=== PATIENT | male | born 1985 | race Caucasian/White ===

== ENCOUNTER 2020-04-15 18:23 | Emergency (ER) | payer OTHER ==
[2020-04-15] MEDS ORDERED: LORAZEPAM INJ 2 MG/1 ML VIAL IV ONE (19:53)
[2020-04-15] MEDS ORDERED: NORMAL SALINE 1000 ML 1,000 ML IV ONE (19:53)
--- NOTE | 2020-04-15 19:55 | ER Document Report ---
ED Medical Screen (RME) - General Chief Complaint: ETOH Abuse Stated Complaint: ETOH Time Seen by Provider: 04/15/20 19:51 Mode of Arrival: Ambulatory Information source: Patient Notes: 34-year-old male presented to ED for detox. He states that he tried to go cold turkey yesterday and ended up having seizures and tremors and his buddies gave him more alcohol. He states he has been drinking alcohol the whole time is 100 2 bottles of vodka a day and he wanted to come off of the alcohol. He states his significant other told him that he had to come to the emergency room and get help. He does not want the to know that he is in here. He is active duty . I have greeted and performed a rapid initial assessment of this patient. A comprehensive ED assessment and evaluation of the patient, analysis of test results and completion of medical decision making process will be conducted by an additional ED providers. - Related Data Home Medications: mens vitamins Past Medical History - Social History Chew tobacco use (# tins/day): Yes - 1 Frequency of alcohol use: Heavy Drug Abuse: None Physical Exam - Vital signs Vitals: Temp Pulse Resp BP 98.5 F 104 H 18 152/96 H 04/15/20 18:31 04/15/20 18:31 04/15/20 18:31 04/15/20 18:31 Course - Vital Signs Vital signs: Temp Pulse Resp BP Pulse Ox 98.5 F 104 H 18 152/96 H 04/15/20 19:47 04/15/20 18:31 04/15/20 18:31 04/15/20 18:31
[2020-04-15 20:20] LABS: ABSOLUTE EOSINOPHILS # (AUTO) 0.1 10^3/uL (0.0-0.6); ABSOLUTE LYMPHOCYTES (AUTO) 1.5 10^3/uL (0.5-4.7); ABSOLUTE MONOCYTES (AUTO) 0.6 10^3/uL (0.1-1.4); ABSOLUTE NEUT (AUTO) 2.8 10^3/uL (1.7-8.2); BASOPHILS % (AUTO) 0.9 % (0-2); EOSINOPHILS % (AUTO) 1.2 % (0-6); HEMATOCRIT 46.9 % (37.9-51.0); HEMOGLOBIN 16.7 g/dL (13.5-17.0); LYMPHOCYTES % (AUTO) 29.4 % (13-45); MEAN CORPUSCULAR HEMOGLOBIN 34.4 pg (27.0-33.4); MEAN CORPUSCULAR HGB CONC 35.6 g/dL (32.0-36.0); MEAN CORPUSCULAR VOLUME 97 fl (80-97); MONOCYTES % (AUTO) 12.7 % (3-13); PLATELET COUNT 254 10^3/uL (150-450); RED BLOOD COUNT 4.84 10^6/uL (4.35-5.55); RED CELL DISTRIBUTION WIDTH 12.5 % (11.5-14.0); SEGMENTED NEUTROPHILS % (AUTO) 55.8 % (42-78); TOTAL CELLS COUNTED % (AUTO) 100 %; WHITE BLOOD COUNT 5.1 10^3/uL (4.0-10.5)
--- NOTE | 2020-04-15 20:23 | ER Document Report ---
ED General <CHAR MAURER - Last Filed: 04/15/20 21:32> - General Mode of Arrival: Ambulatory - Related Data Home Medications: mens vitamins <ANA LAURA VANG - Last Filed: 04/16/20 04:52> - General Chief Complaint: ETOH Abuse Stated Complaint: ETOH Time Seen by Provider: 04/15/20 19:51 Primary Care Provider: [facility] [Outside] - 04/15/20 [facility] [Outside] - Follow up as needed [facility] [Outside] - Follow up as needed Notes: Patient is a 34-year-old male that comes to the emergency department for chief complaint of alcohol withdrawals and alcohol dependence. Patient states that he tried to go "cold turkey", he states he lasted for almost [address] to have repeated vomiting and became extremely shaky and tremulous. He stated his friends told him he looked like he was having a seizure but patient remembers all of the events. Patient states he typically drinks 1.5-2 bottles of vodka daily, he states that he has not tried to stop since he has reached this level of drinking, he has never gone through formal detox in the past. He denies depression or suicidal ideations, denies HI, he states he simply performed a drinking habit and it escalated. He denies any daily medications, diagnosed medical history, or past medical history. 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 He denies smoking or recreational drugs. (ANA LAURA VANG) - Related Data Allergies/Adverse Reactions: No Known Allergies Allergy (Unverified 04/15/20 19:55) Past Medical History - General Information source: Patient - Social History Smoking Status: Never Smoker Chew tobacco use (# tins/day): Yes - 1 Frequency of alcohol use: Heavy Drug Abuse: None Lives with: Alone Family History: Reviewed & Not Pertinent Patient has homicidal ideation: No <ANA LAURA VANG - Last Filed: 04/16/20 04:52> Review of Systems - Review of Systems Constitutional: See HPI EENT: No symptoms reported Cardiovascular: No symptoms reported Respiratory: No symptoms reported Gastrointestinal: See HPI Genitourinary: No symptoms reported Male Genitourinary: No symptoms reported Musculoskeletal: No symptoms reported Skin: No symptoms reported Hematologic/Lymphatic: No symptoms reported Neurological/Psychological: See HPI <ANA LAURA VANG - Last Filed: 04/16/20 04:52> Physical Exam <ANA LAURA VANG - Last Filed: 04/16/20 04:52> - Vital signs Vitals: Temp Pulse Resp BP 98.5 F 104 H 18 152/96 H 04/15/20 18:31 04/15/20 18:31 04/15/20 18:31 04/15/20 18:31 - Notes Notes: GENERAL: Patient is slightly anxious and slightly restless in appearance. Patient does smell of alcohol. HEAD: Normocephalic, atraumatic. EYES: Pupils equal, round, and reactive to light. Extraocular movements intact. ENT: Oral mucosa moist, tongue midline. Oropharynx unremarkable. Airway patent. NECK: Full range of motion. Supple. Trachea midline. No lymphadenopathy. LUNGS: Clear to auscultation bilaterally, no wheezes, rales, or rhonchi. No respiratory distress. Non-tender chest wall. HEART: Borderline tachycardia, normal rhythm, no murmur ABDOMEN: Soft, non-tender. Non-distended. EXTREMITIES: Moves all 4 extremities spontaneously. No edema, normal radial and dorsalis pedis pulses bilaterally. No cyanosis. BACK: no cervical, thoracic, lumbar midline tenderness. No saddle anesthesia, normal distal neurovascular exam. Moves all extremities in full range of motion. NEUROLOGICAL: Alert and oriented x3. Normal speech. Cranial nerves II through XII grossly intact. Strength 5/5 in all extremities. PSYCH: Slightly anxious and restless SKIN: Michael skin (TAJANA LAURA) Course - Laboratory Result Diagrams: 04/15/20 20:10 04/15/20 20:10 <CHAR MAURER - Last Filed: 04/15/20 21:32> - Laboratory Result Diagrams: 04/15/20 20:10 04/15/20 20:10 <ANA LAURA VANG - Last Filed: 04/16/20 04:52> - Re-evaluation Re-evalutation: Patient specifically asked not to have the involved. Spoke with mental health team, she states she spoke with Dr. Enriquez, this is reported to be within patient's rights. Patient is requesting detox. They will not accept him until his alcohol level is below 200. Patient was given an initial dose of benzodiazepines, later he became nauseated and was given Phenergan. After this patient's symptoms essentially resolved and patient slept but remained easily aroused. CBC unremarkable, chemistry shows elevated LFTs but patient has no abdominal pain specifically in the right upper quadrant, I suspect this is secondary to alcohol abuse. Bilirubin is borderline as well. Alk phos is unremarkable, lipase unremarkable, sodium and magnesium are unremarkable. Remaining work-up unremarkable except for alcohol level of 335. Patient will be cleared for detox when his alcohol level is below 200. He was given IV fluids. Alcohol level rechecked, level is 150s, patient with no significant change from prior, patient will be referred directly to [facility] for alcohol rehab. Patient does state understanding and agreement. (ANA LAURA VANG) - Vital Signs Vital signs: Temp Pulse Resp BP Pulse Ox 97.7 F 89 14 142/75 H 98 04/16/20 04:21 04/16/20 04:21 04/16/20 04:21 04/16/20 04:21 04/16/20 04:21 - Laboratory Laboratory results interpreted by me: 04/15/20 04/15/20 04/15/20 20:10 20:10 20:20 MCH 34.4 H Total Bilirubin 3.9 H Direct Bilirubin 0.6 H AST 153 H ALT 214 H Creatine Kinase Total Protein 8.6 H Albumin 5.4 H Urine Protein 30 H Urine Blood SMALL H Urine Urobilinogen 4.0 H Salicylates < 1.0 L Acetaminophen < 10 L Serum Alcohol 335 H* 04/15/20 20:20 MCH Total Bilirubin Direct Bilirubin AST ALT Creatine Kinase 233 H Total Protein Albumin Urine Protein Urine Blood Urine Urobilinogen Salicylates Acetaminophen Serum Alcohol Discharge <CHAR MAURER - Last Filed: 04/15/20 21:32> <ANA LAURA VANG - Last Filed: 04/16/20 04:52> - Discharge Clinical Impression: Alcohol use Alcohol withdrawal Qualifiers: Complication of substance-induced condition: with unspecified complication Qualified Code(s): F10.239 - Alcohol dependence with withdrawal, unspecified Condition: Stable Disposition: HOME, SELF-CARE Additional Instructions: You have been evaluated by both medical and behavioral health teams for alcohol use, withdrawal and desire for detoxification. You have been deemed appropriate for discharge. While in the emergency department you received the following services: Medical screening and assessment, nursing services, dietary services, pharmacological services, one-on-one counseling and/or psychotherapy, environmental services, and continuous observation by a patient patient safety tech. Medications can help with sleep, mood disturbance, depression and anxiety which are typical symptoms when withdrawing and then maintaining abstinence. You are being linked to [facility] for voluntary alcohol detoxification, they already have a bed for you since you were supposed to be at their facility at 2030 this evening. They can assist with managing alcohol withdrawal. Alcohol is one of the only substances you can from and medical monitoring is highly recommended. CHRONIC ALCOHOLISM and ALCOHOL ABUSE: Your evaluation reveals evidence of chronic alcoholism, an addiction to alcohol. The tendency to alcoholism may be inherited. Chronic use of alcohol weakens muscles, causes fatty deposits in the liver, damages the stomach, makes you more prone to infections, and can cause defects in unborn children. In the long run, brain atrophy and cirrhosis of the liver result. You are also at greater risk for certain types of cancer, such as cancer of the mouth, throat, stomach, and liver. Counselling services are available to help you. In-hospital treatment programs often help. Support groups such as Alcoholics Anonymous can be very useful in beating this addiction. Your physician can make a referral for you. As alcoholics often are prone to other addictions, you should discuss your use of any other medications with the doctor. ALCOHOL WITHDRAWAL: Your symptoms are caused by alcohol withdrawal. After a period of frequent drinking, the brain and body are changed by the alcohol. When you quit or reduce your drinking, the nervous system becomes unstable. Withdrawal symptoms can start a few hours after your last drink, but sometimes don't begin until a couple of days later. Symptoms can include shakiness, sweating, insomnia, nausea, vomiting, fearfulness, hallucinations, and seizures. In addition to the acute effects of alcohol withdrawal, we often have to deal with the medical effects of alcoholism. These problems often include dehydration, stomach irritation, intestinal bleeding, low blood sugar, liver disease, and pancreas inflammation. Treatment for alcohol withdrawal includes mild sedatives, vitamins, and fluids. You need to be with someone who can help if symptoms become severe. Many patients can withdraw at home. Admission to the hospital or a detox facility may be necessary if withdrawal symptoms are severe and uncontrollable. Abstaining from alcohol is the only effective long-term treatment. If you start drinking again, you will not be able to control yourself after the first drink. Treatment programs are available. In addition, many alcoholics benefit from Alcoholics Anonymous or other support groups available through your counselor or scientology director business travel. [facility] and [facility] are support groups for friends and family members of an alcoholic. Go to the emergency room if you develop persistent vomiting, severe abdominal pain, fever, shortness of breath, hallucinations, uncontrollable tremors, or seizures. FOLLOW-UP CARE: You are to go directly to [facility] for Voluntary Alcohol Detoxification. If you experience worsening or a significant change in your symptoms, notify your physician immediately, return to the Emergency Department at any time for re-evaluation or utilize mobile crisis. Referrals: [facility] [Outside] - Follow up as needed [facility] [Outside] - Follow up as needed [facility] [Outside] - 04/15/20
[2020-04-15 20:35] LABS: APPEARANCE,URINE CLEAR; BILIRUBIN,URINE NEGATIVE (NEGATIVE); COLOR,URINE YELLOW; GLUCOSE, URINE NEGATIVE (NEGATIVE); KETONES,URINE NEGATIVE (NEGATIVE); LEUKOCYTE ESTERASE,URINE NEGATIVE (NEGATIVE); NITRITE,URINE NEGATIVE (NEGATIVE); PROTEIN,URINE 30 mg/dL (NEGATIVE); URINE SPECIFIC GRAVITY 1.005
[2020-04-15] MEDS ORDERED: NICOTINE 14 MG/24 HR PATCH.TD24 TD ONE (20:48)
[2020-04-15 20:57] LABS: URINE AMPHETAMINES SCREEN NEGATIVE; URINE BARBITURATES SCREEN NEGATIVE; URINE BENZODIAZEPINES SCREEN NEGATIVE; URINE COCAINE SCREEN NEGATIVE; URINE MARIJUANA (THC) SCREEN NEGATIVE; URINE METHADONE SCREEN NEGATIVE; URINE PHENCYCLIDINE SCREEN NEGATIVE
[2020-04-15] MEDS ORDERED: DIAZEPAM 5 MG TABLET PO ONE (21:10)
[2020-04-15 21:18] LABS: ALBUMIN 5.4 g/dL (3.5-5.0); ALKALINE PHOSPHATASE 81 U/L (38-126); ANION GAP 15 (5-19); ASPARTATE AMINO TRANSFERASE 153 U/L (17-59); BILIRUBIN,DIRECT 0.6 mg/dL (0.0-0.4); BILIRUBIN,TOTAL 3.9 mg/dL (0.2-1.3); BLOOD UREA NITROGEN 10 mg/dL (7-20); CALCIUM 9.8 mg/dL (8.4-10.2); CARBON DIOXIDE 28 mmol/L (22-30); CHLORIDE 98 mmol/L (98-107); GLUCOSE 106 mg/dL (75-110); TOTAL PROTEIN 8.6 g/dL (6.3-8.2)
[2020-04-15 21:29] LABS: ACETAMINOPHEN < 10 ug/mL (10-30); SALICYLATE < 1.0 mg/dL (2.0-20.0)
[2020-04-15 21:32] LABS: ALCOHOL 335 mg/dL (NONE DETECTED)
--- NOTE | 2020-04-15 22:02 | PSYCHOLOGICAL NOTE ---
Psych Note - Psych Note Date seen by psych provider: 04/15/20 Time seen by psych provider: 21:00 - [id number]. Psych Note: Presenting Problem: Patient is a 34 year old male who presented to the [facility] ED this evening via POV/best friend for alcohol withdrawal and desire for detox. He told medical staff he has been drinking 1.5-2 bottles of Vodka daily for the past 10 years. He tried to detox on his own last night and said he "felt like he was dying" and his friends told him to come to the hospital for help. Patient identified he came to get help for alcohol withdrawal. He stated "I thought that's where I was" when this clinician mentioned [facility] next door for voluntary detox. Patient admitted to drinking 2 bottles of Vodka a day for the last 10 years. He commented on his liver labs likely being really bad. He reported last night he tried to detox with his girlfriend present and he cannot do that again. He kept asking "wherever I go are they going to help me with how I felt last night when I tried to stop on my own." He further stated "I don't like pills or medication but I cannot go through that again." He was made aware an inpatient facility would do their best to try to make him comfortable throughout the withdrawal process. He stated he had heard and seen things that weren't there and mentioned he'd need something for sleep for sure. Patient admitted to having a bottle of Vodka in his book bag which was on the floor in his ED room. Discussion took place about him needing to be at a certain alcohol level before he can go to [facility] and drinking more would skew that. He allowed this clinician to go through his book bag where a small bottle of [employer] Vodka was found. Patient stated "I brought it in case I started going through what I did last night before getting to detox facility." This clinician, with patient's approval, took the small Vodka bottle, showed ED Provider and contacted security to dispose of it. Security came and took the bottle. This clinician checked in with [facility] ED Behavioral Health Biomedical Field Service Engineer Dr. 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 Dr. Enriquez reached out to Hospital legal (Myrna) who provided information which was shared with patient. Informed patient that the [facility] ED staff cannot call [employer] or contact his command as we would abide by HIPPA and respect his privacy. He was informed it would be his responsibility and duty to inform them, since he is seeking treatment it would be billed to [employer] or he could choose to pay out of pocket. Explained that many options available on base are free or covered by while other civilian services could be a cost and would have to approve if he was going to utilize his insurance. Explained would be aware of treatment then based on insurance being billed. Patient stated he understood all of that. He commented "the right people know about this and the people that don't need to don't know, and he would be using his ." He denied being linked to any services on base or with the . He was adamant he did not want the base to know about him seeking treatment and did not want their services. Patient gave verbal consent to provide linkage and coordinate with [facility] for Voluntary Inpatient Alcohol Detox. Contacted [facility]. Spoke to Rajani. She identified patient was supposed to be to their facility at 2030 and they are holding a bed. They were informed of Serum Alcohol Level and time drawn. Patient was alert and oriented to self, person, place, time and situation. Mood was euthymic with congruent affect. He denied SI/HI and these were never presenting concerns. Patient did not appear to be responding to internal stimuli as evidenced by fair eye contact and answering questions appropriately when addressed. Conversational speech was somewhat slow and slurred but audible and understandable. Thought processes were linear. Intellectual abilities are estimated to be average. Insight, judgment and impulse control were fair as evidenced by discussing having the small bottle of Vodka and allowing this clinician to remove it from his belongings since drinking it would increase his alcohol level which had to be 200 or less to go to [facility]. Patient has never been to the [facility] ED previously. [place] Controlled Substance Data Base showed patient had one prescription going back as far as 2015. That prescription was on 10/24/2016 for Tramadol HCL (12 count, enough for 3 days). Otherwise no other information. Serum Alcohol Level upon arrival to the ED was 335 at 2030 and [facility] requires level to be 200 or less. Interventions: Used open ended questioning to obtain information regarding current crisis situation and past, as well as to get patient to elaborate. Used coming alongside when patient talked about wanting treatment but not through the , his role and responsibility via insurance. Challenged and confronted patient about small bottle of Vodka he told this clinician he had in his book bag. Provided psycho-education regarding the need for medical detox with alcohol withdrawal and how it is one of the only substances an individual can from when withdrawing. Diagnosis: Alcohol Intoxication with Use Disorder Severe Desire for Detox; Concern for Withdrawal Impression/Plan: Patient is cleared from acute psychiatric services. Patient presented to the ED on his own for alcohol withdrawal and desire for detox. He denied SI/HI and did not appear to be responding to internal stimuli based on appropriate interactions and dialogue conversations. His mental status was in tact even with high Serum Alcohol Level of 335. He stated he thought he was at [facility] and gave verbal consent for linkage/coordination to get him there voluntarily for alcohol detox. Coordinated with Rajani at [facility] who confirmed he was supposed to be at their facility at 2030. Once patient's alcohol level is 200 or less he can go to [facility] as they are holding a bed. Consulted with Dr. Enriquez regarding the management and care of patient. ED Physician in agreement with recommendations.
[2020-04-15] MEDS ORDERED: PROMETHAZINE HCL INJ 25 MG/1 ML VIAL IM ONE (22:37)
--- NOTE | 2020-04-15 23:41 | EKG REPORT ---
SEVERITY:- NORMAL ECG - SINUS RHYTHM : Confirmed by: Mallory Shin MD 15-Apr-2020 23:41:13
[2020-04-16 04:21] VITALS: BP 142/75
== END 2020-04-16 04:22 | disposition home or self-care (01) ==
LOC: ER 18:23
DX: F10.239 Alcohol dependence with withdrawal, unspecified (principal)
CPT/HCPCS: 93005; 99285; 96372; 96361; 96374; 36415; 80307 ×4; 82550; 83735; 85025; 80053; 81001; 93010; J2060; J2550; J7030